=== PATIENT | female | born 1980 | race Hispanic/Latino ===

== ENCOUNTER → 2019-06-04 | Outpatient (CLI) | payer BC ==
[~2019-06-04] MED LIST: LEVO1TAB24 PO
== END | disposition home or self-care (01) ==
LOC: OIH 10:09
PROVIDERS: ATTEND Internal Medicine
DX: M54.12 Radiculopathy, cervical region (principal); R07.89 Other chest pain
CPT/HCPCS: 71046; 72040

== ENCOUNTER 2020-11-03 11:43 | Observation (INO) | payer BC ==
[2020-11-03 12:09] LABS: BASOPHILS % (AUTO) 0.2 % (0.0-5.0); HEMATOCRIT 40.1 % (36-48); MEAN CORPUSCULAR HEMOGLOBIN 30.8 pg (27.0-33.0); MEAN CORPUSCULAR HGB CONC 33.9 g/dL (32.0-36.0); MEAN CORPUSCULAR VOLUME 90.7 fL (79-99); MONOCYTES % (AUTO) 10.5 % (3.0-13.0); NEUTROPHILS % (AUTO) 67.1 % (40.0-77.0); PLATELET COUNT (AUTO) 264 K/uL (130-400); RED BLOOD CELL COUNT(AUTO) 4.42 MIL/uL (4.00-5.50); RED CELL DISTRIBUTION WIDTH 13.6 % (11.0-15.5); WHITE BLOOD COUNT (AUTO) 9.6 K/uL (4.8-10.8)
[2020-11-03 12:21] LABS: INR 1.09 (0.85-1.15); PROTHROMBIN TIME 11.6 SEC (9.6-11.6)
[2020-11-03 12:23] LABS: PARTIAL THROMBOPLASTIN TIME 27.8 SEC (26.3-35.5)
[2020-11-03 12:30] LABS: CARBON DIOXIDE 25 mmol/L (21-32); CHLORIDE 99 mmol/L (101-111); GLOMERULAR FILTR. RATE CALC 65 mL/min (>60); GLUCOSE,RANDOM 96 mg/dL (70-105); POTASSIUM 4.4 mmol/L (3.5-5.1); SODIUM SERUM 135 mmol/L (136-145); UREA NITROGEN, BLOOD 11 mg/dL (7-18)
[2020-11-03 12:33] LABS: ALANINE AMINOTRANSFERASE 41 U/L (12-78); ALBUMIN 3.8 g/dL (3.5-5.0); ASPARTATE AMINOTRANSFERASE 28 U/L (10-37); BILIRUBIN,TOTAL 0.5 mg/dL (0.2-1.0); CREATINE KINASE, TOTAL 79 U/L (21-232); MYOGLOBIN 27 ng/mL (10-92); TOTAL PROTEIN, SERUM 8.8 g/dL (6.0-8.3); TROPONIN I < 0.04 ng/mL (0.00-0.06)
[2020-11-03] MEDS ORDERED: ACETAMINOPHEN 500 MG TABLET ONE (12:33)
[2020-11-03] MEDS ORDERED: ONDANSETRON 4MG INJ ONE (12:33)
[2020-11-03] MEDS ORDERED: 0.9%NACL 1000ML 1,000 ML IV ONE (12:39)
[2020-11-03] MEDS ORDERED: KETOROLAC 30MG VIAL (30MG/ML) ONE (12:39)
[2020-11-03] MEDS ORDERED: AZITHROMYCIN 500MG+NS 250ML 250 ML IV ONE (12:39)
[2020-11-03] MEDS ORDERED: METOCLOPRAMIDE 10 MG/2 ML VIAL ONE (12:39)
[2020-11-03] MEDS ORDERED: CEFTRIAXONE 1G VIAL ONE (12:39)
[2020-11-03] MEDS ORDERED: ACETAMINOPHEN 325 MG TAB PO PRN ×2 (16:00)
[2020-11-03] MEDS ORDERED: ERGOCALCIFEROL (VITAMIN D2) 50,000 UNIT CAPSULE PO ONE (16:00)
[2020-11-03] MEDS ORDERED: CEFTRIAXONE 1G VIAL IV SCH (16:00)
[2020-11-03] MEDS ORDERED: AZITHROMYCIN 500MG+NS 250ML 250 ML IV SCH (16:00)
[2020-11-03] MEDS ORDERED: ONDANSETRON 4MG INJ IV PRN (16:00)
[2020-11-03] MEDS ORDERED: DOXYCYCLINE 100MG+NS 250ML 250 ML IV SCH (16:00)
[2020-11-03] MEDS ORDERED: ERGOCALCIFEROL (VITAMIN D2) 50,000 UNIT CAPSULE ONE (17:17)
[2020-11-03] MEDS ORDERED: DOXYCYCLINE 100MG+NS 250ML 250 ML IV ONE (17:18)
[2020-11-03 17:54] LABS: BILIRUBIN,URINE Negative (NEGATIVE); COLOR,URINE Yellow (YELLOW); GLUCOSE, URINE (UA) Negative (NEGATIVE); KETONES,URINE 15 mg/dL (NEGATIVE); LEUKOCYTE ESTERASE ,URINE Moderate (NEGATIVE); NITRATE,URINE Negative (NEGATIVE); OCCULT BLOOD,URINE Small (NEGATIVE); PH,URINE 6.5 (5.0-8.0); PROTEIN,URINE Negative (NEGATIVE)
[2020-11-03 17:59] LABS: APPEARANCE,URINE SLIGHTLY CLOUDY (CLEAR)
[2020-11-03 18:16] LABS: BACTERIA,URINE Few /HPF (None Seen); RBC,URINE 0-1 /HPF (0-1)
[2020-11-03 18:17] LABS: SQUAMOUS EPITHELIAL CELL,UR Moderate /HPF (0-2)
[2020-11-04] MEDS ORDERED: ZINC SULFATE 220 CAPSULE PO SCH (09:00)
[2020-11-04] MEDS ORDERED: ENOXAPARIN SODIUM 40 MG/0.4 ML SYRINGE SQ SCH (09:00)
[2020-11-04] MEDS ORDERED: ASCORBIC ACID 500 MG TAB PO SCH (09:00)
== END 2020-11-04 00:43 | disposition home or self-care (01) ==
LOC: EDH 11:43 → EDHIP 15:55
PROVIDERS: ADMIT Internal Medicine; ATTEND Internal Medicine
DX: U07.1 COVID-19 (principal); I95.9 Hypotension, unspecified
CPT/HCPCS: 36415; 71045; 80053; 81001; 82550; 83605; 83874; 84145; 84484; 85025; 85610; 85730; 86850; 86900; 86901; 87040 ×2; 87088; 87426; 87804 ×2; 99284; G0378 ×9; J0456; J0696; J1885; J2405; J2765; J3490; J7030

== ENCOUNTER 2020-11-11 11:55 | Inpatient (IN) | payer BC ==
[~2020-11-11] VITALS: Ht 162.6 cm; Wt 73.9 kg
[2020-11-11 13:20] LABS: BASOPHILS % (AUTO) 0.1 % (0.0-5.0); HEMATOCRIT 36.8 % (36-48); LYMPHOCYTES % (AUTO) 10.8 % (21.0-51.0); MEAN CORPUSCULAR HEMOGLOBIN 30.5 pg (27.0-33.0); MEAN CORPUSCULAR HGB CONC 33.7 g/dL (32.0-36.0); MEAN CORPUSCULAR VOLUME 90.4 fL (79-99); MONOCYTES % (AUTO) 5.4 % (3.0-13.0); NEUTROPHILS % (AUTO) 82.3 % (40.0-77.0); PLATELET COUNT (AUTO) 326 K/uL (130-400); RED BLOOD CELL COUNT(AUTO) 4.07 MIL/uL (4.00-5.50); RED CELL DISTRIBUTION WIDTH 13.3 % (11.0-15.5); WHITE BLOOD COUNT (AUTO) 11.5 K/uL (4.8-10.8)
[2020-11-11 13:30] LABS: CARBON DIOXIDE 27 mmol/L (21-32); CHLORIDE 99 mmol/L (101-111); CREATININE 0.9 mg/dL (0.5-1.5); GLOMERULAR FILTR. RATE CALC 73 mL/min (>60); GLUCOSE,RANDOM 115 mg/dL (70-105); POTASSIUM 3.7 mmol/L (3.5-5.1); SODIUM SERUM 135 mmol/L (136-145); UREA NITROGEN, BLOOD 13 mg/dL (7-18)
[2020-11-11 13:45] LABS: ALANINE AMINOTRANSFERASE 60 U/L (12-78); ALBUMIN 3.1 g/dL (3.5-5.0); ASPARTATE AMINOTRANSFERASE 54 U/L (10-37); BILIRUBIN,TOTAL 0.5 mg/dL (0.2-1.0); CREATINE KINASE, TOTAL 41 U/L (21-232); MYOGLOBIN 31 ng/mL (10-92); TOTAL PROTEIN, SERUM 8.2 g/dL (6.0-8.3); TROPONIN I < 0.04 ng/mL (0.00-0.06)
[2020-11-11 13:47] LABS: INR 1.04 (0.85-1.15); PROTHROMBIN TIME 11.1 SEC (9.6-11.6)
[2020-11-11 13:48] LABS: PARTIAL THROMBOPLASTIN TIME 27.5 SEC (26.3-35.5)
[2020-11-11 14:05] LABS: ABG BASE EXCESS 0.5 mmol/L (-2.0-3.0); ABG HCO3 24.8 mmol/L (21.0-28.0); ABG OXYGEN SATURATION 92.7 % (95.0-99.0); ABG PCO2 39 mmHg (32-45)
[2020-11-11] MEDS ORDERED: CEFTRIAXONE SODIUM 1 GM ONE (15:41)
[2020-11-11] MEDS ORDERED: DEXAMETHASONE SOD PHOSPHATE 10MG/ML 1ML VIAL ONE (15:41)
[2020-11-11] MEDS ORDERED: AZITHROMYCIN 500MG+NS 250ML 250 ML IV ONE (15:41)
[2020-11-11] MEDS ORDERED: PHARMACY COMMUNICATION MISC SCH (16:45)
[2020-11-11 16:56] LABS: HEMOGLOBIN A1C 5.9 % (4.0-6.0)
[2020-11-11] MEDS ORDERED: ENOXAPARIN SODIUM 40 MG/0.4 ML SYRINGE SQ ONE (17:06)
[2020-11-11] MEDS: DOXYCYCLINE HYCLATE 100 MG TABLET PO SCH (21:00)
[2020-11-11 21:21] LABS: APPEARANCE,URINE Cloudy (CLEAR); BILIRUBIN,URINE Negative (NEGATIVE); COLOR,URINE Orange (YELLOW); GLUCOSE, URINE (UA) Negative (NEGATIVE); KETONES,URINE Negative (NEGATIVE); LEUKOCYTE ESTERASE ,URINE Moderate (NEGATIVE); NITRATE,URINE Negative (NEGATIVE); OCCULT BLOOD,URINE Large (NEGATIVE); PROTEIN,URINE POS 1+ mg/dL (NEGATIVE); UROBILINOGEN,URINE 0.2 mg/dL (0.2-1.0)
[2020-11-11 21:33] LABS: BACTERIA,URINE Few /HPF (None Seen); SQUAMOUS EPITHELIAL CELL,UR Moderate /HPF (0-2)
[2020-11-11] MEDS ORDERED: GUAIFENESIN-DM 200/20 MG 10 ML ONE (22:07)
[2020-11-11] MEDS ORDERED: DOXYCYCLINE HYCLATE 100 MG TABLET PO ONE (22:08)
[2020-11-12 05:18] LABS: BASOPHILS % (AUTO) 0.2 % (0.0-5.0); LYMPHOCYTES % (AUTO) 9.5 % (21.0-51.0); MEAN CORPUSCULAR HEMOGLOBIN 29.9 pg (27.0-33.0); MEAN CORPUSCULAR HGB CONC 32.7 g/dL (32.0-36.0); MEAN CORPUSCULAR VOLUME 91.4 fL (79-99); MONOCYTES % (AUTO) 5.3 % (3.0-13.0); NEUTROPHILS % (AUTO) 84.1 % (40.0-77.0); PLATELET COUNT (AUTO) 344 K/uL (130-400); RED BLOOD CELL COUNT(AUTO) 4.05 MIL/uL (4.00-5.50); RED CELL DISTRIBUTION WIDTH 13.3 % (11.0-15.5); WHITE BLOOD COUNT (AUTO) 12.9 K/uL (4.8-10.8)
[2020-11-12 05:36] LABS: CREATININE 0.7 mg/dL (0.5-1.5); CRP QUANTITATIVE 130.9 mg/L (0.00-9.0); POTASSIUM 4.3 mmol/L (3.5-5.1)
[2020-11-12] MEDS: CEFTRIAXONE SODIUM 1 GM IVP SCH (09:00)
[2020-11-12] MEDS ORDERED: ENOXAPARIN SODIUM 40 MG/0.4 ML SYRINGE SQ SCH (09:00)
[2020-11-12] MEDS: DOXYCYCLINE HYCLATE 100 MG TABLET PO SCH ×2 (09:00→21:00)
[2020-11-12] MEDS: DEXAMETHASONE SOD PHOSPHATE 4 MG/ML 1ML VIAL IVP SCH (09:00)
[2020-11-12] MEDS ORDERED: DEXAMETHASONE SOD PHOSPHATE 10MG/ML 1ML VIAL ONE (10:12)
[2020-11-12] MEDS ORDERED: ENOXAPARIN SODIUM 40 MG/0.4 ML SYRINGE SQ ONE (10:12)
[2020-11-12] MEDS ORDERED: CEFTRIAXONE SODIUM 1 GM ONE (10:12)
[2020-11-12] MEDS ORDERED: ACETAMINOPHEN 325 MG TAB ONE (10:13)
[2020-11-12] MEDS ORDERED: DOXYCYCLINE HYCLATE 100 MG TABLET PO ONE ×2 (10:14→21:19)
[2020-11-12] MEDS: PHARMACY COMMUNICATION MISC SCH ×3 (13:30→21:30)
[2020-11-12 23:00] VITALS: BP 113/75
[2020-11-13] VITALS (7 sets, daily range): BP systolic 90–116; BP diastolic 54–67
[2020-11-13] MEDS: DOXYCYCLINE HYCLATE 100 MG TABLET PO SCH (09:00)
[2020-11-13] MEDS: CEFTRIAXONE SODIUM 1 GM IVP SCH (09:00)
[2020-11-13] MEDS ORDERED: ACETAMINOPHEN 325 MG TAB PO PRN (09:15)
[2020-11-13] MEDS: DEXAMETHASONE SOD PHOSPHATE 4 MG/ML 1ML VIAL IVP SCH (09:43)
[2020-11-13] MEDS ORDERED: PHARMACY COMMUNICATION MISC SCH (10:15)
[2020-11-13] MEDS ORDERED: COMPOUND IV REFRIGERATED 1 EACH IVSOLN MISC PRN (18:00)
[2020-11-13] MEDS ORDERED: REMDESIVIR (EUA) 520 200 MG in SODIUM CHLORIDE 0.9% 250 ML IV ONE ×2 (18:00→20:15)
[2020-11-13] MEDS: ENOXAPARIN SODIUM 40 MG/0.4 ML SYRINGE SQ SCH (22:28)
[2020-11-14 04:00] VITALS: BP 98/59
[2020-11-14 05:09] LABS: BASOPHILS % (AUTO) 0.4 % (0.0-5.0); HEMATOCRIT 36.4 % (36-48); LYMPHOCYTES % (AUTO) 25.1 % (21.0-51.0); MEAN CORPUSCULAR HEMOGLOBIN 29.8 pg (27.0-33.0); MEAN CORPUSCULAR HGB CONC 32.1 g/dL (32.0-36.0); MEAN CORPUSCULAR VOLUME 92.6 fL (79-99); MONOCYTES % (AUTO) 11.2 % (3.0-13.0); NEUTROPHILS % (AUTO) 61.3 % (40.0-77.0); PLATELET COUNT (AUTO) 406 K/uL (130-400); RED BLOOD CELL COUNT(AUTO) 3.93 MIL/uL (4.00-5.50); RED CELL DISTRIBUTION WIDTH 13.4 % (11.0-15.5); WHITE BLOOD COUNT (AUTO) 8.4 K/uL (4.8-10.8)
[2020-11-14 05:38] LABS: ALBUMIN 2.5 g/dL (3.5-5.0); BILIRUBIN,TOTAL 0.2 mg/dL (0.2-1.0); CREATININE 0.8 mg/dL (0.5-1.5); CRP QUANTITATIVE 49.8 mg/L (0.00-9.0); POTASSIUM 4.4 mmol/L (3.5-5.1); THYROID STIMULATING HORMONE 1.16 uIU/mL (0.36-3.74); TOTAL PROTEIN, SERUM 7.9 g/dL (6.0-8.3)
[2020-11-14] MEDS: REMDESIVIR LABS MISC SCH (06:00)
[2020-11-14 06:12] LABS: ERYTHROCYTE SEDIMENTATION RATE 75 MM/HR (0-20)
[2020-11-14] MEDS: DEXAMETHASONE SOD PHOSPHATE 4 MG/ML 1ML VIAL IVP SCH (08:20)
[2020-11-14] MEDS: ENOXAPARIN SODIUM 40 MG/0.4 ML SYRINGE SQ SCH ×2 (08:21→22:59)
[2020-11-14 08:59] VITALS: BP 81/40
[2020-11-14 09:39] LABS: ALBUMIN 2.6 g/dL (3.5-5.0); BILIRUBIN,DIRECT 0.1 mg/dL (0.0-0.3); BILIRUBIN,TOTAL 0.2 mg/dL (0.2-1.0); TOTAL PROTEIN, SERUM 7.7 g/dL (6.0-8.3)
[2020-11-14 11:46] VITALS: BP 101/59
[2020-11-14 15:49] VITALS: BP 97/65
[2020-11-14] MEDS: REMDESIVIR (EUA) 520 100 MG in SODIUM CHLORIDE 0.9% 250 ML IV SCH (18:18)
[2020-11-14 20:00] VITALS: BP 100/70
[2020-11-15] VITALS: BP 115/78
[2020-11-15 04:00] VITALS: BP 102/68
[2020-11-15 06:07] LABS: BASOPHILS % (AUTO) 0.3 % (0.0-5.0); EOSINOPHILS % (AUTO) 0.1 % (0.0-8.0); HEMATOCRIT 35.2 % (36-48); LYMPHOCYTES % (AUTO) 26.3 % (21.0-51.0); MEAN CORPUSCULAR HEMOGLOBIN 29.5 pg (27.0-33.0); MEAN CORPUSCULAR HGB CONC 32.4 g/dL (32.0-36.0); MEAN CORPUSCULAR VOLUME 91.2 fL (79-99); NEUTROPHILS % (AUTO) 62.6 % (40.0-77.0); PLATELET COUNT (AUTO) 457 K/uL (130-400); RED BLOOD CELL COUNT(AUTO) 3.86 MIL/uL (4.00-5.50); RED CELL DISTRIBUTION WIDTH 13.3 % (11.0-15.5); WHITE BLOOD COUNT (AUTO) 10.1 K/uL (4.8-10.8)
[2020-11-15 06:26] LABS: ALBUMIN 2.5 g/dL (3.5-5.0); BILIRUBIN,TOTAL 0.3 mg/dL (0.2-1.0); CREATININE 0.8 mg/dL (0.5-1.5); POTASSIUM 3.9 mmol/L (3.5-5.1); TOTAL PROTEIN, SERUM 7.1 g/dL (6.0-8.3)
[2020-11-15] MEDS: REMDESIVIR LABS MISC SCH (06:27)
[2020-11-15 06:35] LABS: BILIRUBIN,DIRECT 0.1 mg/dL (0.0-0.3)
[2020-11-15 08:00] VITALS: BP 95/59
[2020-11-15] MEDS: DEXAMETHASONE SOD PHOSPHATE 4 MG/ML 1ML VIAL IVP SCH (08:26)
[2020-11-15] MEDS: ENOXAPARIN SODIUM 40 MG/0.4 ML SYRINGE SQ SCH ×2 (08:27→20:37)
[2020-11-15 11:43] VITALS: BP 95/56
[2020-11-15 16:00] VITALS: BP 93/61
[2020-11-15] MEDS ORDERED: SODIUM CHLORIDE 0.9% 100 ML IV ONE (17:34)
[2020-11-15] MEDS: REMDESIVIR (EUA) 520 100 MG in SODIUM CHLORIDE 0.9% 250 ML IV SCH (17:43)
[2020-11-15 20:00] VITALS: BP 105/68
[2020-11-16] VITALS: BP 100/58
[2020-11-16 04:00] VITALS: BP 110/68
[2020-11-16] MEDS: REMDESIVIR LABS MISC SCH (05:47)
[2020-11-16 06:07] LABS: BASOPHILS % (AUTO) 0.4 % (0.0-5.0); EOSINOPHILS % (AUTO) 0.2 % (0.0-8.0); HEMATOCRIT 33.9 % (36-48); LYMPHOCYTES % (AUTO) 25.8 % (21.0-51.0); MEAN CORPUSCULAR HEMOGLOBIN 29.8 pg (27.0-33.0); MEAN CORPUSCULAR HGB CONC 32.7 g/dL (32.0-36.0); MEAN CORPUSCULAR VOLUME 91.1 fL (79-99); MONOCYTES % (AUTO) 7.7 % (3.0-13.0); NEUTROPHILS % (AUTO) 60.6 % (40.0-77.0); PLATELET COUNT (AUTO) 438 K/uL (130-400); RED BLOOD CELL COUNT(AUTO) 3.72 MIL/uL (4.00-5.50); RED CELL DISTRIBUTION WIDTH 13.4 % (11.0-15.5); WHITE BLOOD COUNT (AUTO) 11.4 K/uL (4.8-10.8)
[2020-11-16 06:30] LABS: ALBUMIN 2.4 g/dL (3.5-5.0); BILIRUBIN,TOTAL 0.2 mg/dL (0.2-1.0); CREATININE 0.8 mg/dL (0.5-1.5); CRP QUANTITATIVE 12.2 mg/L (0.00-9.0); POTASSIUM 3.7 mmol/L (3.5-5.1); TOTAL PROTEIN, SERUM 6.7 g/dL (6.0-8.3)
[2020-11-16] MEDS: DEXAMETHASONE SOD PHOSPHATE 4 MG/ML 1ML VIAL IVP SCH (08:55)
[2020-11-16] MEDS: ENOXAPARIN SODIUM 40 MG/0.4 ML SYRINGE SQ SCH ×2 (08:55→20:46)
[2020-11-16 12:00] VITALS: BP 93/73
[2020-11-16] MEDS: REMDESIVIR (EUA) 520 100 MG in SODIUM CHLORIDE 0.9% 250 ML IV SCH (16:51)
[2020-11-16 16:52] VITALS: BP 90/59
[2020-11-16 20:00] VITALS: BP 100/68
[2020-11-17] VITALS: BP 98/62
[2020-11-17 04:00] VITALS: BP 96/60
[2020-11-17] MEDS: REMDESIVIR LABS MISC SCH (05:43)
[2020-11-17 06:17] LABS: BASOPHILS % (AUTO) 0.6 % (0.0-5.0); EOSINOPHILS % (AUTO) 0.2 % (0.0-8.0); HEMATOCRIT 38.6 % (36-48); LYMPHOCYTES % (AUTO) 23.7 % (21.0-51.0); MEAN CORPUSCULAR HEMOGLOBIN 29.7 pg (27.0-33.0); MEAN CORPUSCULAR HGB CONC 32.1 g/dL (32.0-36.0); MEAN CORPUSCULAR VOLUME 92.3 fL (79-99); MONOCYTES % (AUTO) 5.9 % (3.0-13.0); NEUTROPHILS % (AUTO) 61.3 % (40.0-77.0); NUCLEATED RED BLOOD CELLS 0.1 % (0.0-0.19); PLATELET COUNT (AUTO) 507 K/uL (130-400); RED BLOOD CELL COUNT(AUTO) 4.18 MIL/uL (4.00-5.50); RED CELL DISTRIBUTION WIDTH 13.4 % (11.0-15.5); WHITE BLOOD COUNT (AUTO) 16.3 K/uL (4.8-10.8)
[2020-11-17 06:37] LABS: ALBUMIN 2.8 g/dL (3.5-5.0); BILIRUBIN,DIRECT 0.1 mg/dL (0.0-0.3); BILIRUBIN,TOTAL 0.2 mg/dL (0.2-1.0); CRP QUANTITATIVE 8.7 mg/L (0.00-9.0); POTASSIUM 4.4 mmol/L (3.5-5.1); TOTAL PROTEIN, SERUM 7.7 g/dL (6.0-8.3)
[2020-11-17 08:30] VITALS: BP 101/49
[2020-11-17] MEDS: ENOXAPARIN SODIUM 40 MG/0.4 ML SYRINGE SQ SCH (09:03)
[2020-11-17] MEDS: DEXAMETHASONE SOD PHOSPHATE 4 MG/ML 1ML VIAL IVP SCH (09:03)
[2020-11-17] MEDS ORDERED: PHARMACY COMMUNICATION MISC SCH (12:00)
[2020-11-17 12:38] VITALS: BP 97/67
[2020-11-17] MEDS ORDERED: REMDESIVIR (EUA) 520 100 MG in SODIUM CHLORIDE 0.9% 250 ML IV SCH (14:00)
[2020-11-17 14:27] LABS: ALBUMIN 2.7 g/dL (3.5-5.0); BILIRUBIN,DIRECT 0.1 mg/dL (0.0-0.3); BILIRUBIN,TOTAL 0.2 mg/dL (0.2-1.0); TOTAL PROTEIN, SERUM 7.2 g/dL (6.0-8.3)
[2020-11-17] MEDS ORDERED: APIX2.5T PO (16:08)
[2020-11-17] MEDS ORDERED: DEXA6TAB7 PO (16:08)
[2020-11-17 16:30] VITALS: BP 103/69
[2020-11-17] MEDS ORDERED: PANT40TA55 PO (16:32)
== END 2020-11-17 19:05 | disposition home or self-care (01) | DRG 177 ==
LOC: EDH 11:55 → EDHIP 16:34 → 2AH 11-12 22:53
PROVIDERS: ADMIT Internal Medicine; ATTEND Internal Medicine
PROC: XW13325 Transfusion of Convalescent Plasma (Nonautologous) into Peripheral Vein, Percutaneous Approach, New Technology Group 5 (ICD-10-PCS; 2020-11-11)
PROC: XW033E5 Introduction of Remdesivir Anti-infective into Peripheral Vein, Percutaneous Approach, New Technology Group 5 (ICD-10-PCS; principal; 2020-11-13)
DX: U07.1 COVID-19 (principal); J12.82 Pneumonia due to coronavirus disease 2019; J80 Acute respiratory distress syndrome; J44.0 Chronic obstructive pulmonary disease with (acute) lower respiratory infection; M94.0 Chondrocostal junction syndrome [Tietze]; R74.01 Elevation of levels of liver transaminase levels; E66.3 Overweight; Z83.3 Family history of diabetes mellitus; Z82.49 Family history of ischemic heart disease and other diseases of the circulatory system; Z82.3 Family history of stroke; Z82.5 Family history of asthma and other chronic lower respiratory diseases; Z82.0 Family history of epilepsy and other diseases of the nervous system; Z68.28 Body mass index [BMI] 28.0-28.9, adult
CPT/HCPCS: 36415; 36600; 71045; 80048; 80053; 80076; 81001; 82248; 82550; 82728; 82803; 82948; 83036; 83605; 83615; 83874; 84145; 84443; 84484; 84702; 85025; 85378; 85610; 85651; 85730; 86140; 86900; 86901; 86927; 87040; 87088; 87426; 87804; 93005; 94760; G0378; J0456; J0696; J1100; J1650; J7050

== ENCOUNTER 2022-08-17 08:40 | Emergency (ER) | payer BC ==
[~2022-08-17] VITALS: Ht 157.5 cm; Wt 74.8 kg
[~2022-08-17 08:40] MED LIST changes: +APIX2.5T PO; +DEXA6TAB7 PO; +PANT40TA55 PO
[2022-08-17 08:44] VITALS: BP 109/64
[2022-08-17] MEDS ORDERED: IBUPROFEN 600 MG TABLET PO ONE (09:30)
[2022-08-17] MEDS ORDERED: IBUP-2070 PO (09:42)
== END 2022-08-17 09:55 | disposition home or self-care (01) ==
LOC: EDH 08:40
DX: S82.891A Other fracture of right lower leg, initial encounter for closed fracture (principal); X58.XXXA Exposure to other specified factors, initial encounter; Z79.1 Long term (current) use of non-steroidal anti-inflammatories (NSAID); Z79.01 Long term (current) use of anticoagulants; Y93.K1 Activity, walking an animal; Y92.89 Other specified places as the place of occurrence of the external cause; Y99.8 Other external cause status
CPT/HCPCS: 73610

== ENCOUNTER → 2022-11-29 | Outpatient (CLI) | payer BC ==
[~2022-11-29] MED LIST changes: +IBUP-2070 PO
== END | disposition home or self-care (01) ==
LOC: RAH 15:28
PROVIDERS: ATTEND Internal Medicine
DX: S92.201A Fracture of unspecified tarsal bone(s) of right foot, initial encounter for closed fracture (principal); M19.071 Primary osteoarthritis, right ankle and foot; X58.XXXA Exposure to other specified factors, initial encounter; Y93.89 Activity, other specified; Y92.89 Other specified places as the place of occurrence of the external cause; Y99.8 Other external cause status
CPT/HCPCS: 73620

== ENCOUNTER 2023-09-02 14:14 | Emergency (ER) | payer BC ==
[~2023-09-02] VITALS: Ht 157.5 cm; Wt 76.2 kg
[~2023-09-02 14:14] MED LIST changes: -CYCL10TA16 PO
[2023-09-02 14:20] VITALS: BP 143/97; PULSE 73; RESP 18
[2023-09-02] MEDS ORDERED: CYCLOBENZAPRINE HCL 10 MG TABLET PO ONE (15:00)
[2023-09-02] MEDS ORDERED: KETOROLAC 30MG VIAL (30MG/ML) IM ONE (15:00)
[2023-09-02] MEDS ORDERED: CYCL10TA16 PO (15:01)
[2023-09-02] MEDS ORDERED: IBUP-2070 PO (15:01)
== END 2023-09-02 15:32 | disposition home or self-care (01) ==
LOC: EDH 14:14
DX: S39.012A Strain of muscle, fascia and tendon of lower back, initial encounter (principal); Z79.01 Long term (current) use of anticoagulants; Z79.3 Long term (current) use of hormonal contraceptives; Z79.52 Long term (current) use of systemic steroids; Z79.899 Other long term (current) drug therapy; X58.XXXA Exposure to other specified factors, initial encounter; Y93.89 Activity, other specified; Y92.89 Other specified places as the place of occurrence of the external cause; Y99.8 Other external cause status
CPT/HCPCS: 99284; 96372; J1885

== ENCOUNTER → 2023-09-02 | Outpatient (CLI) | payer BC ==
[~2023-09-02] MED LIST changes: +CYCL10TA16 PO
== END | disposition home or self-care (01) ==
LOC: RAH 13:45
PROVIDERS: ATTEND Internal Medicine
DX: E04.1 Nontoxic single thyroid nodule (principal)
CPT/HCPCS: 76536

== ENCOUNTER → 2023-09-05 | Outpatient (CLI) | payer BC ==
[~2023-09-05] MED LIST changes: +CYCL10TA16 PO
== END | disposition home or self-care (01) ==
LOC: RAH 11:51
PROVIDERS: ATTEND Internal Medicine
DX: M47.26 Other spondylosis with radiculopathy, lumbar region (principal)
CPT/HCPCS: 72100

== ENCOUNTER 2025-08-23 06:32 | Emergency (ER) | payer BC ==
[~2025-08-23] VITALS: Ht 157.5 cm; Wt 75.3 kg
[~2025-08-23 06:32] MED LIST changes: +IBUP-1492 PO; -IBUP-2070 PO; +MELO-108 PO; +ORPH100T4 PO
--- NOTE | 2025-08-23 06:45 | ERN ---
ED Note History of Present Illness Stated Complaint: R FLANK/R LOWER BACK PAIN Chief Complaint: Flank Pain Time Seen by MD: 06:34 Dictation: Patient presents with acute onset of pain localized to the right lower back/flank region, which began yesterday morning and has persisted, with intermittent improvement following a steroid injection administered by her physician. The pain recurred severely upon awakening today. She has a history of kidney stones and expresses concern for recurrence, though she notes that her previous episode was associated with more severe pain radiating to her groin. She denies burning or stinging sensations, fever, chills, urinary changes, nausea, vomiting, and reports no chance of due to an IUD. She does not take any regular medications except for vitamins. Medications: Occasional steroid injections for muscle pain (specific steroid unknown), daily vitamins. Past Medical History: History of kidney stones. Surgical History: IUD placement. Allergies: Coded Allergies: No Known Drug Allergies (Unverified Allergy, Unknown, 11/12/14) Home Meds Active Scripts Orphenadrine Citrate (Orphenadrine Citrate) 100 Mg Tablet.er, 1 TAB PO [id number] PRN for pain for 10 Days, #20 TAB 0 Refills Prov:NONA DURAN DO 08/15/24 Meloxicam (Meloxicam) 15 Mg Tablet, 15 MG PO DAILY PRN for PAIN for 10 Days, #10 TAB Prov:NONA DURAN DO 08/15/24 Ibuprofen (Ibuprofen) 600 Mg Tablet, 600 MG PO Q6H PRN for PAIN, #30 TAB Prov:FILIBERTO HEADP 09/02/23 Cyclobenzaprine HCl (Flexeril) 10 Mg Tab, 10 MG PO TID, #15 TAB Prov:FILIBERTO HEADP 09/02/23 Ibuprofen (Ibuprofen) 600 Mg Tablet, 600 MG PO Q6H PRN for PAIN, #30 TAB Prov:QING BERNAL MD 08/17/22 Pantoprazole Sodium (Protonix) 40 Mg Ectab, 40 MG PO DAILY for 30 Days, #30 TAB.EC Prov:DANIELLE COLLINS MD 11/17/20 Apixaban (Eliquis) 2.5 Mg Tablet, 2.5 MG PO BID for 14 Days, #28 TAB 0 Refills Prov:DANIELLE COLLINS MD 11/17/20 Dexamethasone (Decadron) 6 Mg Tablet, 6 MG PO DAILY for 4 Days, TAB 0 Refills Prov:DANIELLE COLLINS MD 11/17/20 Reported Medications Levonorgestrel-Eth Estradiol (Levora-28) 1 Each Tablet, 1 EACH PO DAILY, TAB 11/12/14 Past Medical History Past Medical History: Other Additional Past Medical Hx: KINDNEY STONES Surgical History: Other, Social History: Negative, Lives with family History: Not Applicable Review of System Dictation Genitourinary: Denies dysuria, hematuria, or urinary frequency/urgency. Gastrointestinal: Denies nausea and vomiting. Constitutional: Denies fever and chills. Musculoskeletal: Reports localized pain in the right lower back/flank region. Initial Vital Sign VS Vital Signs Date Time Temp Pulse Resp B/P (MAP) Pulse Ox O2 Delivery O2 Flow Rate FiO2 08/23/25 06:34 97.3 71 24 113/70 100 Room Air 0 08/23/25 07:06 21 Physical Exam Dictation General: Appears uncomfortable, may be writhing in pain. Abdomen: Tenderness to palpation in the flank region, often unilateral. No rebound or guarding. No palpable masses. Back: Costovertebral angle tenderness present on the affected side. Genitourinary: No suprapubic tenderness. No visible hematuria. Skin: No rash or lesions. Heart: Regular rate and rhythm. Lungs: Clear to auscultation. Extremities: No edema. Neurologic: Alert and oriented. Results (Laboratory/Radiology) Laboratory/Radiology Laboratory Tests Test 08/23/25 06:47 08/23/25 08:30 White Blood Count 10.7 K/uL (4.8-10.8) Red Blood Count 4.10 MIL/uL (4.00-5.50) Hemoglobin 13.0 g/dL (12.0-16.0) Hematocrit 38.9 % (36-48) Mean Corpuscular Volume 94.9 fL (79-99) Mean Corpuscular Hemoglobin 31.7 pg (27.0-33.0) Mean Corpuscular Hemoglobin Concent 33.4 g/dL (32.0-36.0) Red Cell Distribution Width 13.4 % (11.0-15.5) Platelet Count 338 K/uL (130-400) Mean Platelet Volume 8.6 fL (7.5-10.5) Immature Granulocyte % (Auto) 0.5 % (0-1) Neutrophils (%) (Auto) 55.6 % (40.0-77.0) Lymphocytes (%) (Auto) 31.7 % (21.0-51.0) Monocytes (%) (Auto) 9.2 % (3.0-13.0) Eosinophils (%) (Auto) 2.4 % (0.0-8.0) Basophils (%) (Auto) 0.6 % (0.0-5.0) Neutrophils # (Auto) 6.0 K/uL (1.8-7.7) Lymphocytes # (Auto) 3.4 K/uL (1.0-4.8) Monocytes # (Auto) 1.0 K/uL (0.1-1.0) Eosinophils # (Auto) 0.26 K/uL (0.00-0.70) Basophils # (Auto) 0.06 K/uL (0.00-0.20) Absolute Immature Granulocyte (auto 0.05 K/uL (0-1) Nucleated Red Blood Cells 0.0 % (0.0-0.19) Sodium Level 137 mmol/L (136-145) Potassium Level 4.7 mmol/L (3.5-5.1) Chloride Level 105 mmol/L (101-111) Carbon Dioxide Level 26 mmol/L (21-32) Blood Urea Nitrogen 16 mg/dL (7-18) Creatinine 0.9 mg/dL (0.5-1.0) Glomerular Filtration Rate Calc 80 mL/min (>90) Random Glucose 110 mg/dL (70-105) H Total Calcium 8.5 mg/dL (8.5-10.1) Urine Color YELLOW (YELLOW) Urine Appearance CLOUDY (CLEAR) H Urine pH 6.0 (5.0-8.0) Urine Specific [place] 1.030 (1.001-1.031) Urine Protein 20 mg/dL (NEGATIVE) H Urine Glucose (UA) NEGATIVE mg/dL (NEGATIVE) Urine Ketones NEGATIVE mg/dL (NEGATIVE) Urine Occult Blood NEGATIVE (NEGATIVE) Urine Nitrate NEGATIVE (NEGATIVE) Urine Bilirubin NEGATIVE mg/dL (NEGATIVE) Urine Urobilinogen 0.2 mg/dL (0.2-1.0) Urine Leukocyte Esterase 500 Jorge/uL (NEGATIVE) H Urine RBC 11-25 /HPF (0-1) H Urine WBC 11-25 /HPF (0-1) H Urine Squamous Epithelial Cells MANY /HPF (0-2) Urine Bacteria Few /HPF (None Seen) Urine HCG, Qualitative NEGATIVE (NEGATIVE) Labs Reviewed?: Yes CT Scan Comment: [facility] [address] [place] [address] IMAGING REPORT Signed PATIENT: RAKESH AUSTIN MR#: [id number] : 1980 SEX: F AGE: 44 LOCATION: [facility] ORDER 1 STATUS: REG REPORT#: [id number] SERVICE 0 REASON: R/O KIDNEY STONES ORDERING PHYSICIAN: PAN MAGUIRE MD PROCEDURE: ABD PEL WO - CT ABDOMEN/PELVIS W/O CONTRAST EXAM: CT Abdomen and Pelvis Without IV Contrast, Renal Stone Protocol CLINICAL HISTORY: R/O KIDNEY STONES TECHNIQUE: Axial computed tomography images of the abdomen and pelvis without intravenous contrast according to a renal stone protocol. CONTRAST: No IV contrast. COMPARISON: None provided. FINDINGS: LUNG BASES: The lung bases appear clear. No pleural effusions are seen. LIVER: The liver appears within normal limits. GALLBLADDER AND BILE DUCTS: The gallbladder appears unremarkable. No radioopaque gallstones are seen. No biliary ductal dilatation is evident. PANCREAS: Unremarkable. SPLEEN: The spleen is normal in size without focal lesion. ADRENAL GLANDS: Unremarkable. KIDNEYS, URETERS, AND BLADDER: No hydronephrosis, hydroureter, or urinary calculi seen. The urinary bladder appears within normal limits. STOMACH AND BOWEL: No wall thickening. No CT evidence of colitis or acute diverticulitis. No evidence of bowel obstruction. APPENDIX: No evidence of acute appendicitis on CT examination. PERITONEUM: No free fluid. No free air. LYMPH NODES: No lymphadenopathy is evident. REPRODUCTIVE: The uterus is mildly enlarged in size measuring 9.1 x 6.1 x 7.7 cm . Intrauterine device present. VASCULATURE: No abdominal aortic aneurysm. BONES: No aggressive appearing osseous lesions. No acute fracture is evident. IMPRESSION: No hydronephrosis, hydroureter, or urinary calculi seen. Negative renal stone protocol study. Mildly enlarged uterus. IUD. Recommend pelvic ultrasound /MRI pelvis for further evaluation if clinically warranted. /[place] DICTATED BY: SALVATORE MARTE Jr., MD DATE: 08/23/25 1111 ELECTRONICALLY SIGNED BY: SALVATORE MARTE Jr., MD DATE: 08/23/25 1111 ED Course ED Course Orders Procedure Category Date Status Time Cbc With Differential LAB 08/23/25 Complete 06:41 Urinalysis Profile LAB 08/23/25 Complete 06:41 Ct Abdomen/Pelvis W/O CT 08/23/25 Resulted Contrast 06:41 Lactated Ringers PHA 08/23/25 Complete 1000ml (Lactated 07:00 Ketorolac PHA 08/23/25 Complete Tromethamine 30mg/Ml 07:00 Morphine 4mg Syg PHA 08/23/25 Complete (Morphine 4mg Syg) 07:00 Ondansetron 4mg Inj PHA 08/23/25 Complete (Zofran 4mg Inj) 07:00 ,Urine Test LAB 08/23/25 Complete 06:41 Basic Metabolic Panel LAB 08/23/25 Complete 06:41 Culture Urine NITIN 08/23/25 In Process 08:52 Current Medications Medications (Trade) Dose Ordered Sig/Hugo Route PRN Reason Start Time Stop Time Status Last Admin Dose Admin Ketorolac Tromethamine (toRADol) 30 mg ONCE ONCE IVP 08/23/25 07:00 08/23/25 07:01 DC 08/23/25 06:55 Lactated Ringer's 1,000 ml @ 0 mls/hr ONCE ONCE IV 08/23/25 07:00 08/23/25 07:01 DC 08/23/25 06:55 Morphine Sulfate (morPHINE 4MG SYG) 4 mg ONCE ONCE IVP 08/23/25 07:00 08/23/25 07:01 DC 08/23/25 06:55 Ondansetron HCl (zoFRAN 4MG INJ) 4 mg ONCE ONCE IVP 08/23/25 07:00 08/23/25 07:01 DC 08/23/25 06:55 Vital Signs Date Time Temp Pulse Resp B/P (MAP) Pulse Ox O2 Delivery O2 Flow Rate FiO2 08/23/25 08:30 98.4 85 18 118/65 100 Room Air* 0 21 08/23/25 07:06 98.4 89 18 121/66 99 Room Air* 0 21 08/23/25 06:34 97.3 71 24 113/70 100 Room Air 0 Medical Decision Making MDM MDM: Differential diagnosis: UTI, nephrolithiasis, ureterolithiasis, Rationale: Tests considered and ordered secondary to shared decision making include: Previous outside records reviewed: Old ER visits. Risk of complication and/or morbidity or mortality of patient management: None Medications-Per medication reconciliation Need for hospitalization: Patient does not meet criteria for hospitalization. Need for emergency major/minor surgery: No There are no social concerns with this patient. Patient is a 44-year-old female coming in complaining of lower abdominal right flank pain. Patient states he has a history of kidney stones. CT did not disclose acute findings. Laboratory workup positive for urinary tract infection. Patient received one dose of Rocephin we will be going home with oral antibiotics. Throughout ER visit patient has been stable. DX & DISP Disposition: Discharge Departure Impression: Primary Impression: UTI (urinary tract infection) Condition: Stable Scripts Cephalexin Monohydrate (Keflex) 500 Mg Cap 1 CAP PO BID for 10 Days, #20 CAP 0 Refills Prov: GLENN RENO MD 08/23/25 Additional Instructions: FOLLOW-UP WITH PRIMARY CARE PROVIDER IN 1 TO 2 DAYS. TAKE MEDICATIONS DIRECTED HERE IN THE EMERGENCY ROOM. OKAY TO CONTINUE HOME MEDICATIONS UNLESS OTHERWISE DISCUSSED DURING YOUR VISIT IN THE EMERGENCY ROOM TODAY. RETURN TO YOUR NEAREST EMERGENCY ROOM IF SYMPTOMS WORSEN OR IF THERE IS NO IMPROVEMENT. CALL 911 IF YOU NEED IMMEDIATE ASSISTANCE. TAKE TYLENOL [id number] NEEDED AND IF NO CONTRAINDICATIONS ARE PRESENT. INCREASE ORAL HYDRATION. A WOUND CULTURE OR URINE CULTURE WAS ORDERED HERE IN THE EMERGENCY ROOM DEPARTMENT PLEASE FOLLOW-UP WITH PRIMARY CARE PROVIDER AND ADVISE THEM TO GET REPORTS FROM OUR FACILITY. IF YOU HAD ANY LUIS DANIEL WRAP/SPLINTS THAT WERE APPLIED HERE, PLEASE DO NOT REMOVE THEM UNTIL YOU SEE YOUR PRIMARY CARE OR SPECIALTY. Referrals: Referrals: NADIYA ALEXANDER MD (PCP) Time of Disposition: 10:36 PAN MAGUIRE MD Aug 23, 2025 06:45 GLENN RENO MD Aug 23, 2025 10:37
[2025-08-23] MEDS: LACTATED RINGERS 1000ML 1,000 ML IV ONE (06:55)
[2025-08-23 06:57] LABS: IMMATURE GRANULOCYTE ABSOLUTE 0.05 K/uL (0-1); NUCLEATED RED BLOOD CELLS 0.0 % (0.0-0.19); PLATELET COUNT (AUTO) 338 K/uL (130-400); RED BLOOD CELL COUNT(AUTO) 4.10 MIL/uL (4.00-5.50); RED CELL DISTRIBUTION WIDTH 13.4 % (11.0-15.5); WHITE BLOOD COUNT (AUTO) 10.7 K/uL (4.8-10.8)
[2025-08-23 07:10] LABS: CREATININE 0.9 mg/dL (0.5-1.0); GLOMERULAR FILTR. RATE CALC 80.0 mL/min (>90); GLUCOSE,RANDOM 110.0 mg/dL (70-105); SODIUM SERUM 137.0 mmol/L (136-145); UREA NITROGEN, BLOOD 16.0 mg/dL (7-18)
--- NOTE | 2025-08-23 07:57 | NUR ---
CT SCAN ON HOLD, PT PENDING TEST AT THIS TIME.
[2025-08-23 08:46] LABS: APPEARANCE,URINE CLOUDY (CLEAR); GLUCOSE, URINE (UA) NEGATIVE (NEGATIVE); LEUKOCYTE ESTERASE ,URINE 500 Leu/uL (NEGATIVE); NITRATE,URINE NEGATIVE (NEGATIVE); OCCULT BLOOD,URINE NEGATIVE (NEGATIVE)
[2025-08-23 08:50] LABS: ADD UA MICROSCOPIC YES
[2025-08-23 08:52] LABS: SQUAMOUS EPITHELIAL CELL,UR MANY /HPF (0-2)
[2025-08-23 08:53] LABS: HCG,QUALITATIVE URINE NEGATIVE (NEGATIVE)
--- NOTE | 2025-08-23 09:19 | NUR ---
called ct confirmed negative test for ct
--- NOTE | 2025-08-23 10:13 | HMCIMG ---
EXAM: CT Abdomen and Pelvis Without IV Contrast, Renal Stone Protocol CLINICAL HISTORY: R/O KIDNEY STONES TECHNIQUE: Axial computed tomography images of the abdomen and pelvis without intravenous contrast according to a renal stone protocol. CONTRAST: No IV contrast. COMPARISON: None provided. FINDINGS: LUNG BASES: The lung bases appear clear. No pleural effusions are seen. LIVER: The liver appears within normal limits. GALLBLADDER AND BILE DUCTS: The gallbladder appears unremarkable. No radioopaque gallstones are seen. No biliary ductal dilatation is evident. PANCREAS: Unremarkable. SPLEEN: The spleen is normal in size without focal lesion. ADRENAL GLANDS: Unremarkable. KIDNEYS, URETERS, AND BLADDER: No hydronephrosis, hydroureter, or urinary calculi seen. The urinary bladder appears within normal limits. STOMACH AND BOWEL: No wall thickening. No CT evidence of colitis or acute diverticulitis. No evidence of bowel obstruction. APPENDIX: No evidence of acute appendicitis on CT examination. PERITONEUM: No free fluid. No free air. LYMPH NODES: No lymphadenopathy is evident. REPRODUCTIVE: The uterus is mildly enlarged in size measuring 9.1 x 6.1 x 7.7 cm . Intrauterine device present. VASCULATURE: No abdominal aortic aneurysm. BONES: No aggressive appearing osseous lesions. No acute fracture is evident. IMPRESSION: No hydronephrosis, hydroureter, or urinary calculi seen. Negative renal stone protocol study. Mildly enlarged uterus. IUD. Recommend pelvic ultrasound /MRI pelvis for further evaluation if clinically warranted. /[place]
[2025-08-23] MEDS ORDERED: CEPH500B PO (10:36)
[2025-08-23 10:37] VITALS: BP 115/65; PULSE 78; RESP 18; TEMP 98.4; O2SAT 100
== END 2025-08-23 11:28 | disposition home or self-care (01) ==
LOC: EDH 06:32
DX: N39.0 Urinary tract infection, site not specified (principal); Z79.899 Other long term (current) drug therapy; Z79.52 Long term (current) use of systemic steroids; Z79.818 Long term (current) use of other agents affecting estrogen receptors and estrogen levels; Z79.01 Long term (current) use of anticoagulants; Z79.3 Long term (current) use of hormonal contraceptives
CPT/HCPCS: 99285; 74176; 96374; 96361; 96375; 80048; 85025; 87086; 81001; 81025; 36415; 96372; J1885; J0696; J2405; J2270

== ENCOUNTER 2025-08-30 04:48 | Emergency (ER) | payer BC ==
[~2025-08-30] VITALS: Ht 165.1 cm; Wt 74.8 kg
[~2025-08-30 04:48] MED LIST changes: +CEPH500B PO
--- NOTE | 2025-08-30 04:57 | NUR ---
UA CUP PROVIDED
--- NOTE | 2025-08-30 05:00 | NUR ---
UA COLLECTED AND SENT
--- NOTE | 2025-08-30 05:57 | ERN ---
General Chief Complaint: Back Pain-No Injury Stated Complaint: LEFT BACK PAIN Time Seen by MD: 05:23 History of Present Illness Initial Comments 44-year-old female no past medical history here for evaluation of left flank pain. Patient states he was recently seen at outside hospital and diagnosed with a UTI one week ago. She presents today with a worsening pain for which he has been taking baclofen with no affect on the pain. No fever no cough no shortness a breath. No nausea vomiting diarrhea. Allergies: Coded Allergies: No Known Drug Allergies (Unverified Allergy, Unknown, 11/12/14) Home Meds Active Scripts Cephalexin Monohydrate (Keflex) 500 Mg Cap, 1 CAP PO BID for 10 Days, #20 CAP 0 Refills Prov:GLENN RENO MD 08/23/25 Orphenadrine Citrate (Orphenadrine Citrate) 100 Mg Tablet.er, 1 TAB PO [id number] PRN for pain for 10 Days, #20 TAB 0 Refills Prov:NONA DURAN DO 08/15/24 Meloxicam (Meloxicam) 15 Mg Tablet, 15 MG PO DAILY PRN for PAIN for 10 Days, #10 TAB Prov:NONA DURNA DO 08/15/24 Ibuprofen (Ibuprofen) 600 Mg Tablet, 600 MG PO Q6H PRN for PAIN, #30 TAB Prov:FILIBERTO HEAD V [facility] 09/02/23 Cyclobenzaprine HCl (Flexeril) 10 Mg Tab, 10 MG PO TID, #15 TAB Prov:FILIBERTO HEADP 09/02/23 Ibuprofen (Ibuprofen) 600 Mg Tablet, 600 MG PO Q6H PRN for PAIN, #30 TAB Prov:QING BERNAL MD 08/17/22 Pantoprazole Sodium (Protonix) 40 Mg Ectab, 40 MG PO DAILY for 30 Days, #30 TAB.EC Prov:DANIELLE COLLINS MD 11/17/20 Apixaban (Eliquis) 2.5 Mg Tablet, 2.5 MG PO BID for 14 Days, #28 TAB 0 Refills Prov:DANIELLE COLLINS MD 11/17/20 Dexamethasone (Decadron) 6 Mg Tablet, 6 MG PO DAILY for 4 Days, TAB 0 Refills Prov:DANIELLE COLLINS MD 11/17/20 Reported Medications Levonorgestrel-Eth Estradiol (Levora-28) 1 Each Tablet, 1 EACH PO DAILY, TAB 11/12/14 Past Medical History Past Medical History: UTI, Other Medical History Other: KINDNEY STONES Past Surgical History: Other, Social History Social History: Negative, Lives with family Female( History) History: Not Applicable ROS Dictation CONSTITUTIONAL: No chills, no fever, no weakness, no diaphoresis, no malaise. HEAD/FACE: No signs of trauma. EENT: No eye pain, no blurred vision, no tearing, no double vision, no ear pain, no ear discharge, no nose pain, no nasal congestion, no throat pain, no throat swelling, no mouth pain. RESPIRATORY: No cough, no orthopnea, no SOB, no stridor, no wheezing. CARDIOVASCULAR: No chest pain, no edema, no palpitations, no syncope. GASTROINTESTINAL/ABDOMINAL: No abdominal pain, no constipation, no diarrhea, no nausea, no vomiting. GENITOURINARY: No abnormal discharge, no dysuria, no frequent urination, no hematuria. No complaints of pain in the genitals. MUSCULOSKELETAL: No back pain, no gout, no joint pain, no joint swelling, muscle pain, no muscle stiffness, no neck pain. INTEGUMENTARY: No change in color, no change in hair/nails, no dryness, no lesion, no lumps, no rash. NEUROLOGICAL/PSYCH: No anxiety, not depressed, no emotional problem, no headache, no numbness, no pre-existing deficit, no history of seizures, no tremors, no weakness. HEMATOLOGIC/LYMPHATIC: Not anemic, no history of blood clots, no apparent bleeding, no bruising, glands not swollen. All Systems Negative, Except as Noted. Musculoskeletal: (+) back pain, (+) Flank Pain Review of Systems: was completed, & the rest were negative. Physical Exam Physical Exam Dictation VITAL SIGNS: Reviewed. GENERAL APPEARANCE: Alert, oriented x3, no acute distress, obese. HEAD AND FACE: Non-traumatic. EYES: PERRL, pink conjunctivas, eyelid no trauma, anterior chamber clear. EARS: Pinnas intact and no signs of trauma or erythema. Ear canals clear and no discharge. TMs no erythema. NOSE: No discharge, no bleeding. OROPHARYNX: Mouth normal, teeth no caries, tongue pink. Pharynx clear, no erythema. Tonsils no exudates, no abscesses noted. Mucous membrane moist. NECK: Supple, non-tender, no thyromegaly, no masses, no JVD, no bruits. BREAST: Deferred. CHEST: No tenderness, no crepitus, no paradoxical movement, no retractions. LUNGS: Clear, well-ventilated, symmetric, no rales, no wheezing, no rhonchi, no stridor, good breath sounds bilaterally. HEART: Regular rate, regular rhythm, no murmur, no gallops. VASCULAR: No peripheral edema. ABDOMEN: Soft, positive bowel sounds, nondistended, no guarding, nontender, no rebound, no masses no hepatomegaly, no splenomegaly, no Cole's sign, no hernias. RECTAL: Deferred. GENITAL: Deferred. NEUROLOGICAL: Normal speech, gross motor function intact, gross sensory function intact. MUSCULOSKELETAL: Neck nontender, full range of motion, back up worker, full range of motion. EXTREMITIES: Nontender, full range of motion. SKIN: Color pink, dry, no turgor, no rash, no lacerations, no abrasions, no contusions. LYMPHATICS: Deferred. General Appearance: (+) no apparent distress Orientation: (+) alert, (+) oriented x 3 Eye: bilateral eye normal inspection, bilateral eye PERRL, bilateral eye EOMI Ear, Nose, Throat: (+) hearing grossly normal, (+) normal ENT inspection, (+) moist mucous membraine Neck: (+) normal inspection, (+) supple Respiratory: (+) chest non-tender Heart: (+) regular; (-) murmur Gastrointestinal: (+) soft, (+) non-tender Extremities: (+) normal range of motion Results Laboratory and Microbiology Lab and Micro Result Laboratory Tests Test 08/30/25 05:00 Urine Color YELLOW (YELLOW) Urine Appearance SL CLOUDY (CLEAR) Urine pH 6.0 (5.0-8.0) Urine Specific [place] 1.025 (1.001-1.031) Urine Protein TRACE mg/dL (NEGATIVE) H Urine Glucose (UA) NEGATIVE mg/dL (NEGATIVE) Urine Ketones NEGATIVE mg/dL (NEGATIVE) Urine Occult Blood LARGE (NEGATIVE) H Urine Nitrate NEGATIVE (NEGATIVE) Urine Bilirubin NEGATIVE mg/dL (NEGATIVE) Urine Urobilinogen 0.2 mg/dL (0.2-1.0) Urine Leukocyte Esterase SMALL Jorge/uL (NEGATIVE) H Urine RBC 6-10 /HPF (0-1) H Urine WBC 26-50 /HPF (0-1) H Urine Squamous Epithelial Cells MANY /HPF (0-2) Urine Bacteria RARE /HPF (None Seen) Urine HCG, Qualitative NEGATIVE (NEGATIVE) Labs Reviewed?: Yes MDM 44-year-old female with left flank pain. Likely kidney stone. We will get urine studies and CT scan. Pending CT scan at this time. Case endorsed to Dr. Reno at the end of my shift MDM: Differential diagnosis: Lumbar Strain, hematuria, uterine abnormality Rationale: Tests considered and ordered secondary to shared decision making include: Previous outside records reviewed: Old ER visits. Risk of complication and/or morbidity or mortality of patient management: None Medications-Per medication reconciliation Need for hospitalization: Patient does not meet criteria for hospitalization. Need for emergency major/minor surgery: No There are no social concerns with this patient. Patient is a 44-year-old female coming back pain. Per patient this has been ongoing for several months. Patient has been evaluated in the past CT was performed a weeks ago. She has not followed up with a your employee benefits insurance agent yet. CT did not disclose acute findings this time either. It did advised patient appropriate follow up with PCP and employee benefits insurance agent. Patient will be discharged in stable condition. Throughout ER visit patient has been stable. ED Course Orders Procedure Category Date Status Time Urinalysis Profile LAB 08/30/25 Complete 05:02 Ketorolac PHA 08/30/25 Complete Tromethamine 15mg/Ml 06:00 Ct Abd/Pel Wo Con CT 08/30/25 Resulted Renal/Appy 05:46 0.9%Nacl 1000ml (Ns PHA 08/30/25 In Process 1000ml) 06:00 ,Urine Test LAB 08/30/25 Complete 06:19 Culture Urine NITIN 08/30/25 In Process 07:07 Current Medications Medications (Trade) Dose Ordered Sig/Hugo Route PRN Reason Start Time Stop Time Status Last Admin Dose Admin Ketorolac Tromethamine (toRADol) 15 mg ONCE ONCE IM 08/30/25 06:00 08/30/25 06:01 DC 08/30/25 06:59 Sodium Chloride 1,000 ml @ 0 mls/hr Q0M IV 08/30/25 06:00 09/29/25 05:59 08/30/25 07:00 Vital Signs Date Time Temp Pulse Resp B/P (MAP) Pulse Ox O2 Delivery O2 Flow Rate FiO2 08/30/25 06:36 97.2 80 16 119/60 100 Room Air* 0 21 08/30/25 04:55 96.8 72 18 118/68 100 Room Air DX & DISP Disposition: Discharge Departure Impression: Primary Impression: Musculoskeletal pain Additional Impression: Strain of fascia of lower back Condition: Stable Additional Instructions: FOLLOW-UP WITH PRIMARY CARE PROVIDER IN 1 TO 2 DAYS. TAKE MEDICATIONS DIRECTED HERE IN THE EMERGENCY ROOM. OKAY TO CONTINUE HOME MEDICATIONS UNLESS OTHERWISE DISCUSSED DURING YOUR VISIT IN THE EMERGENCY ROOM TODAY. RETURN TO YOUR NEAREST EMERGENCY ROOM IF SYMPTOMS WORSEN OR IF THERE IS NO IMPROVEMENT. CALL 911 IF YOU NEED IMMEDIATE ASSISTANCE. TAKE TYLENOL [id number] NEEDED AND IF NO CONTRAINDICATIONS ARE PRESENT. INCREASE ORAL HYDRATION. A WOUND CULTURE OR URINE CULTURE WAS ORDERED HERE IN THE EMERGENCY ROOM DEPARTMENT PLEASE FOLLOW-UP WITH PRIMARY CARE PROVIDER AND ADVISE THEM TO GET REPORTS FROM OUR FACILITY. IF YOU HAD ANY LUIS DANIEL WRAP/SPLINTS THAT WERE APPLIED HERE, PLEASE DO NOT REMOVE THEM UNTIL YOU SEE YOUR PRIMARY CARE OR SPECIALTY. Referrals: Referrals: NADIYA ALEXANDER MD (PCP) Time of Disposition: 09:10 MIGUEL ÁNGEL GERMAN MD Aug 30, 2025 05:57 GLENN RENO MD Aug 30, 2025 09:09
--- NOTE | 2025-08-30 06:10 | NUR ---
REPORT TO MOSHE CROCKER
--- NOTE | 2025-08-30 06:15 | NUR ---
PT CARE ASSUMED AT THIS TIME
[2025-08-30 06:41] LABS: APPEARANCE,URINE SL CLOUDY (CLEAR); GLUCOSE, URINE (UA) NEGATIVE (NEGATIVE); LEUKOCYTE ESTERASE ,URINE SMALL Leu/uL (NEGATIVE); NITRATE,URINE NEGATIVE (NEGATIVE); OCCULT BLOOD,URINE LARGE (NEGATIVE)
[2025-08-30 06:47] LABS: ADD UA MICROSCOPIC YES
[2025-08-30] MEDS: 0.9%NACL 1000ML 1,000 ML IV SCH (07:00)
[2025-08-30 07:03] LABS: SQUAMOUS EPITHELIAL CELL,UR MANY /HPF (0-2)
--- NOTE | 2025-08-30 07:05 | NUR ---
REPORT GIVEN TO HIPOLITO TOWNSEND AT THIS TIME
--- NOTE | 2025-08-30 08:46 | HMCIMG ---
EXAM: CT Abdomen and Pelvis Without IV contrast CLINICAL HISTORY: r/o L kidney stone TECHNIQUE: Axial computed tomography images of the abdomen and pelvis without intravenous contrast. CONTRAST: No IV contrast. COMPARISON: CT abdomen and pelvis without contrast, dated August 23, 2025 FINDINGS: LUNG BASES: The lung bases appear clear. No pleural effusions are seen. LIVER: Unremarkable. GALLBLADDER AND BILE DUCTS: The gallbladder appears within normal limits. No radioopaque gallstones are seen. No biliary ductal dilatation is evident. PANCREAS: Unremarkable. SPLEEN: Unremarkable. ADRENAL GLANDS: Unremarkable. KIDNEYS, URETERS, AND BLADDER: The kidneys appear within normal limits. There is no hydronephrosis or hydroureter. No urinary calculi are seen. STOMACH AND BOWEL: Unremarkable appearance of the stomach and bowel. No evidence of bowel obstruction. No evidence suggesting enteritis or colitis. APPENDIX: No evidence of acute appendicitis on CT examination. PERITONEUM: No free fluid. No free air. LYMPH NODES: No lymphadenopathy is evident. REPRODUCTIVE: The uterus is mildly enlarged, measuring 8.9 x 7.8 x 7.7 cm with a mild lobulated outline. An intrauterine device is present. Small hypodense lesion measuring 2.8 x 2.3 cm in the left ovary, concerning for follicular cyst VASCULATURE: No evidence of abdominal aortic aneurysm. BONES: No aggressive appearing osseous lesion. No acute osseous pathology is evident. IMPRESSION: No renal/ureteric calculi. No hydroureteronephrosis. No features of acute appendicitis. Mildly enlarged uterus with a mild lobulated outline. Recommend transvaginal ultrasound /MRI pelvis for further evaluation if clinically warranted. The findings are similar to those of the prior CT abdomen and pelvis without contrast, dated August 23, 2025. /[place]
[2025-08-30 09:12] VITALS: BP 119/60; PULSE 79; RESP 16; TEMP 97.2; O2SAT 100
== END 2025-08-30 09:39 | disposition home or self-care (01) ==
LOC: EDH 04:48
DX: S39.012A Strain of muscle, fascia and tendon of lower back, initial encounter (principal); Z79.818 Long term (current) use of other agents affecting estrogen receptors and estrogen levels; Z87.440 Personal history of urinary (tract) infections; Z79.899 Other long term (current) drug therapy; Z79.52 Long term (current) use of systemic steroids; Z79.3 Long term (current) use of hormonal contraceptives; Z79.01 Long term (current) use of anticoagulants; X58.XXXA Exposure to other specified factors, initial encounter; Y93.89 Activity, other specified; Y92.89 Other specified places as the place of occurrence of the external cause; Y99.8 Other external cause status
CPT/HCPCS: 99284; 74176; 87086; 81001; 81025; 96372; J1885